=== PATIENT | female | born 2000 | race American Indian/Alaskan Native ===

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

== ENCOUNTER 2020-11-30 08:18 | Inpatient (IN) | payer MEDICAID ==
[2020-11-30] MEDS ORDERED: Ondansetron 4 MG/2 ML SDV IVPUSH PRN (08:24)
[2020-11-30] MEDS ORDERED: Methylergonovine 0.2 MG/1 ML Amp IM PRN (08:24)
[2020-11-30] MEDS ORDERED: Lidocaine 1% 30 ML SDV INJECT PRN (08:24)
[2020-11-30] MEDS ORDERED: Misoprostol 50 MCG (1/2 of 100 MCG) Tab VAG ONE ×2 (08:24→20:52)
[2020-11-30] MEDS ORDERED: Misoprostol 400 MCG (4 X 100 MCG TAB) RECTAL PRN (08:24)
[2020-11-30] MEDS ORDERED: Carboprost Tromethamine 250 MCG/1 ML Amp IM PRN (08:24)
[2020-11-30] MEDS ORDERED: Lactated Ringers 1,000 ML IV ONE (08:24)
[2020-11-30] MEDS ORDERED: Sodium Chloride 0.9% 10 ML Syringe FLUSH PRN (08:24)
[2020-11-30] MEDS ORDERED: Acetaminophen 325 MG Tab PO PRN ×2 (08:24)
[2020-11-30] MEDS ORDERED: Tranexamic Acid 1,000 MG in Sodium Chloride 0.9% 100 ML IV PRN (08:24)
[2020-11-30] MEDS ORDERED: Oxytocin/Normal Saline 30 UNIT/500 ML BAG IV SCH ×2 (08:30)
[2020-11-30] MEDS: Misoprostol 25 MCG (1/4 of 100 MCG) Tab VAG PRN ×2 (13:18→17:55)
[2020-11-30] MEDS: Penicillin G Potassium 5 MILLUNITS in Sodium Chloride 0.9% 100 ML IV ONE (13:43)
[2020-11-30] MEDS: Penicillin G Potassium 3 MILLUNITS in Sodium Chloride 0.9% 100 ML IV SCH (13:44)
--- NOTE | 2020-11-30 21:51 | OBOUT ---
DATE: 11/30/2020 TIME: 8:40 to 9 o'clock. REASON FOR NST: 1. Intrauterine at 37 weeks, confirmed with 12 and 3/7 weeks ultrasound. 2. Preeclampsia without severe features at current time of dictation. 3. Gestational diabetes mellitus, supposed to be on metformin. Initial blood sugar fasting controlled at 91. 4. History of syphilis, treated in May 2020 with 3 doses of penicillin at [facility]. Will need followup after delivery of her and baby. 5. Positive urine drug screen for THC on 06/06/2020 at [facility]. 6. GBS positive. 7. History of chlamydia, treated and negative on 08/07/2020. 8. G1, P0. NST INTERPRETATION: During this time period, heart tone baseline is approximately 130, and at least two 15 x 15 beats per minute accelerations, making this strip reactive as well as reassuring. Tocometer reveals potential of 1 contraction, not felt by the patient. Blood pressure 144/72, heart rate 81, blood sugar 91. ASSESSMENT: 1. Nonstress test reactive as well as reassuring. 2. Tocometer with 1 contraction, not felt by the patient. PLAN: Shortly after NST was performed, vaginal exam revealed to be finger tip, 60% effaced, ballotable presentation, vertex suspected, and 50 mcg of Cytotec was placed vaginally at that time. At current time of dictation, we will continue to follow clinically and closely. Of note, labs did return. The patient does have anemia of with hemoglobin of 9.1, her platelets are normal at 237. Other labs are pending. We will add her RPR titer to her labs today and notify lab to run them stat and will send them straight as soon as possible. Seen with medical student. Patient was personally seen and examined with the medical student practitioner student, Nicole Pacheco. I reviewed the noted scribed on my behalf and necessary changes have been made to reflect my opinion on the history, exam, assessment, and plan MODL /[id number] MTDD
[2020-11-30] MEDS: hydrOXYzine HCl 25 MG Tab PO ONE (22:03)
[2020-12-01] MEDS: Misoprostol 25 MCG (1/4 of 100 MCG) Tab VAG PRN ×2 (02:00→06:35)
[2020-12-01] MEDS: hydrOXYzine HCl 25 MG Tab PO ONE (07:30)
[2020-12-01] MEDS: Lactated Ringers 1,000 ML IV SCH ×3 (07:30→22:08)
[2020-12-01] MEDS ORDERED: hydrOXYzine HCl 25 MG Tab ONE (07:35)
[2020-12-01] MEDS ORDERED: Labetalol 20 MG/4 ML Syringe ONE ×2 (07:35→08:00)
[2020-12-01] MEDS ORDERED: Magnesium Sulfate/Water 4 GM/100 ML BAG IV ONE (07:38)
[2020-12-01] MEDS ORDERED: Labetalol 20 MG/4 ML Syringe IVPUSH ONE ×3 (07:39→09:28)
[2020-12-01] MEDS ORDERED: hydrOXYzine HCl 25 MG Tab PO ONE (07:41)
[2020-12-01] MEDS ORDERED: D5W IV SCH (07:45)
[2020-12-01] MEDS ORDERED: MAGNESIUM SULFATE IV SCH (07:45)
[2020-12-01] MEDS ORDERED: Magnesium Sulfate/Water 4 GM/100 ML BAG ONE (07:48)
[2020-12-01] MEDS ORDERED: Magnesium Sulfate/Water 20 GM/500 ML BAG ONE (07:48)
[2020-12-01] MEDS: Magnesium Sulfate/Water 20 GM/500 ML BAG IV SCH ×2 (08:10→19:45)
[2020-12-01] MEDS ORDERED: Penicillin G Potassium 5 MILLUNITS in Sodium Chloride 0.9% 100 ML IV ONE (09:00)
[2020-12-01] MEDS: Penicillin G Potassium 5 MILLUNITS in Sodium Chloride 0.9% 100 ML IV ONE (09:03)
[2020-12-01] MEDS ORDERED: Calcium Gluconate 10% 1 GM/10 ML SDV IV PRN (09:44)
[2020-12-01] MEDS ORDERED: Labetalol 20 MG/4 ML Syringe IVPUSH PRN (10:04)
[2020-12-01] MEDS ORDERED: Nalbuphine 10 MG/1 ML Vial IM PRN (10:14)
[2020-12-01] MEDS ORDERED: fentaNYL 100 MCG/2 ML SDV IVPUSH PRN (10:14)
--- NOTE | 2020-12-01 10:47 | PN ---
DATE: 12/01/2020 SUBJECTIVE: The patient complains of back pain and hip pain. She denies any contraction pain. Overnight, she received 50 mcg Cytotec placement, subsequently followed by 25 mcg Cytotec placement 4 hours after. In total during the induction, she has received 200 mcg of Cytotec placed. Her blood pressures have been increased overnight with systolic blood pressures in the 160s per nursing report. She denies any headaches, vision changes, fevers, chills, nausea, vomiting, chest pain, shortness of breath, upper abdominal pain, numbness, paresthesias. She last ate at 3:30 p.m. yesterday. She denies any history of anesthesia or bleeding problems. OBJECTIVE: Current Vital Signs: T 97.8 F, BP 194/96, P 94, RR 16. Heart: Regular rate and rhythm. No murmur noted. Lungs: Clear to auscultation bilaterally. FHT: Category 1, baseline 130s, moderate variability, accelerations present, decelerations absent. [place]: lacking contraction pattern. Cervical: Fingertip dilation of the external os, internal os closed. Station - 3, 30% effaced. LABORATORY DATA: WBC 10.7, RBC 4.0, HGB 9.5, HCT 30.5, platelet count 227. BUN 8, creatinine 0.63, uric acid 5.5, AST 11, ALT 13, LDH 151. ASSESSMENT: 1. Intrauterine at 37 weeks 1 day gestation, confirmed by ultrasound at 12 weeks 3/7 days' gestation. 2. Preeclampsia with severe features. 3. Gestational diabetes mellitus: Controlled on inconsistent metformin use and diet changes. 4. History of syphilis. Treated in 05/2020 with 3 doses penicillin. 5. Positive for urine drug screen for THC upon admission. 6. Group B Streptococcus positive. 7. G1, P0. 8. Anemia upon admission. Hemoglobin 9.1. 9. History of chlamydia infection, adequately treated. Re-testing negative on 08/07/2020. PLAN: Cytotec was placed at 0630. Currently, at the maximum dose of Cytotec placement (200 mcg). May consider adding Pitocin at 10:30 for augmentation/induction of labor. Due to elevated blood pressures and diagnosis of preeclampsia with severe features, started 4 g bolus of magnesium with subsequent dosing of 2 g/hr continuous magnesium sulfate. We will order magnesium labs every 6 hours. Gave 20 mg IV bolus labetalol, which did not help blood pressures, so an additional 40 mg IV push of labetalol was given. Systolic blood pressure goals below 160 at this time. If blood pressures are SBP greater 160 or DBP greater 110, we will give additional 40 mg IV push of labetalol. If blood pressures do not meet goal, may consider 80 mg labetalol IV push. We will continue to monitor for signs and symptoms of preeclampsia. We will continue to monitor induction of labor. May consider section if clinical status deteriorates. The patient verbalized understanding and is in agreement with plan. Syphillis testing sent to [facility], we expect syphillis results on Wednesday. HEIDI Crooks Seen with medical student. Patient was personally seen and examined with the medical student practitioner student, Nicole Pacheco. I reviewed the noted scribed on my behalf and necessary changes have been made to reflect my opinion on the history, exam, assessment, and plan [facility] /[id number] MTDD
[2020-12-01] MEDS: Penicillin G Potassium 3 MILLUNITS in Sodium Chloride 0.9% 100 ML IV SCH ×6 (11:17→23:27)
[2020-12-01] MEDS ORDERED: Oxytocin/Normal Saline 30 UNIT/500 ML BAG IV ONE (11:20)
[2020-12-01] MEDS ORDERED: Nalbuphine 10 MG/1 ML Vial ONE (11:55)
--- NOTE | 2020-12-01 14:35 | US ---
PROCEDURE INFORMATION: Exam: US , Limited Exam date and time: 12/01/2020 10:07 AM Age: 20 years old Clinical indication: Lmp or gestational age (in weeks): 37 wks, 1 day; Labor and delivery abnormalities; Other: Preeclampsia; ; Additional info: Questionable presentation TECHNIQUE: Imaging protocol: Real-time ultrasound of the maternal uterus with image documentation. Exam focused on the clinical indication. COMPARISON: No relevant prior studies available. FINDINGS: Gestation: Intrauterine gestation. presentation: Cephalic presentation. heart rate: heart rate recorded to be 128 bpm. Other findings: Limited examination. IMPRESSION: 1. Cephalic presentation. 2. heart rate recorded to be 128 bpm.
[2020-12-01] MEDS ORDERED: fentaNYL 100 MCG/2 ML SDV IV ONE (15:16)
--- NOTE | 2020-12-01 16:39 | PN ---
DATE: 12/01/2020 SUBJECTIVE: The patient is experiencing increased pelvic pressure and pain. She has received Nubain 20 mg IM and is on nitrox gas for pain management. She still reports increasing discomfort. Her blood pressures have remained within goal since the last evaluation. The Pitocin rate is up to 12. Per nursing report, contractions have lasted up to 4 minutes long, and there has been minimal variability for the past 1 hour. OBJECTIVE: Current Vital Signs: BP 125/63, P 74, T 99.2 F. Heart: Regular rate and rhythm. FHT: Category 2, baseline of 115-120s, minimal variability, minimal accelerations, and decelerations absent. [place]: Irregular contraction pattern lasting 2 to 5 minutes. Contractions are lasting for up to 4 to 5 minutes long. Cervical: Fingertip dilation of the external and internal os. Station -3, 75% effaced. ASSESSMENT: 1. Intrauterine at 37 weeks 1 day gestation, confirmed by ultrasound at 12 weeks 3/7 days gestation. 2. Preeclampsia with severe features. 3. Gestational diabetes mellitus, controlled on inconsistent metformin use and diet changes. 4. History of syphilis. Treated in 05/2020 with 3 doses of penicillin. 5. Positive for urine drug screen for THC upon admission. 6. Group B Streptococcus positive. 7. G1, P0. 8. Anemia upon admission. Hemoglobin 9.1. 9. History of chlamydia infection, adequately treated. Retesting negative on 08/07/2020. PLAN: Two doses of penicillin have been completed for prophylaxis due to GBS positive status. We will reduce her Pitocin rate from 12 to 6. We will continue to monitor blood pressures and want to remain goal systolic BP less than 160 and DBP less than 110. We will discuss plan with Dr. Bay. May consider artificial rupture of membrane or intrauterine catheter placement. HEIDI Crooks Seen with medical student. Patient was personally seen and examined with the medical student practitioner student, Nicole Pacheco. I reviewed the noted scribed on my behalf and necessary changes have been made to reflect my opinion on the history, exam, assessment, and plan MODL /[id number] [facility]
[2020-12-01] MEDS ORDERED: Naloxone 2 MG/2 ML Syringe IVPUSH PRN ×2 (17:25→18:38)
[2020-12-01] MEDS ORDERED: diphenhydrAMINE 50 MG/ML SDV IVPUSH PRN ×2 (17:25→18:38)
[2020-12-01] MEDS ORDERED: Acetaminophen/oxyCODONE 325-5 MG Tab PO PRN (17:25)
[2020-12-01] MEDS ORDERED: ePHEDrine 50 MG/ML SDV IVPUSH PRN (17:25)
[2020-12-01] MEDS ORDERED: Lactated Ringers 1,000 ML IV SCH (17:30)
[2020-12-01] MEDS ORDERED: Oxytocin/Normal Saline 60 UNIT/1,000 ML BAG ONE (17:41)
[2020-12-01] MEDS ORDERED: Succinylcholine 200 MG/10 ML MDV IV ONE (18:00)
[2020-12-01] MEDS ORDERED: Propofol 200 MG/20 ML SDV IV ONE (18:00)
[2020-12-01] MEDS ORDERED: Dexamethasone 4 MG/ML SDV IV ONE (18:00)
[2020-12-01] MEDS ORDERED: Ondansetron 4 MG/2 ML SDV IV ONE (18:00)
[2020-12-01] MEDS ORDERED: Ketorolac 30 MG/ML SDV IVPUSH ONE (18:00)
[2020-12-01] MEDS ORDERED: diphenhydrAMINE 25 MG Tab PO PRN (18:38)
[2020-12-01] MEDS ORDERED: Ondansetron 4 MG/2 ML SDV IVPUSH PRN (18:38)
[2020-12-01] MEDS ORDERED: fentaNYL Citrate/PF 1,500 MCG/30 ML PCA Vial IV SCH (18:45)
[2020-12-01] MEDS: Ketorolac 30 MG/ML SDV IVPUSH SCH (19:45)
--- NOTE | 2020-12-01 19:46 | PN ---
DATE: 11/30/2020 SUBJECTIVE: The patient presented for induction of labor at 37 weeks' gestation. She has not been feeling cramping. She does report increased pelvic pressure since starting the Cytotec. This morning, Cytotec 50 mcg was placed, and 4 hours after, a dose of 25 mcg Cytotec was placed. Cervix has made minimal change since admission. OBJECTIVE: Current Vital Signs: Afebrile, P 98, BP 168/77, and repeat BP check 156/85, RR 16. General: Alert. No concerning distress. FHT: Category 1, moderate variability, positive accels, negative decels. [place]: Irregular contractions occurring every 2 to 7 minutes. Pelvic: Cervix dilated to fingertip, effacement 50%, -3 station. Extremities: Nontender. No concerning edema. ASSESSMENT: 1. Intrauterine , 37 weeks' gestation based upon ultrasound at 12-3/7 weeks. 2. Preeclampsia without severe features. 3. Gestational diabetes mellitus, controlled on intermittent use of metformin and diet changes. 4. History of syphilis, treated on 05/2020. 5. Positive urine drug screen for THC upon admission. 6. Group B Streptococcus positive. 7. G1, P0. 8. Anemia of . Admission hemoglobin 9.1. 9. History of chlamydia infection, adequately treated, and subsequent testing negative on 08/07/2020. PLAN: Placed another Cytotec 25 mcg at 5:55 p.m. Will recheck in 4 hours for cervical dilation and change. We will continue placing 25 mcg Cytotec. Discussed with the patient risks involved such as uterine tachysystole. Pain is low and well controlled. Discussed that if SBP > 160 on a repeat exam, diagnosis of preeclampsia with severe features would be made and magnesium would be started. May start labetalol 20 mg IV push if SBP > 160 or DBP > 110. The patient verbalized understanding and is in agreement with plan. HEIDI Crooks Seen with medical student. Patient was personally seen and examined with the medical student practitioner student, Nicole Pacheco. I reviewed the noted scribed on my behalf and necessary changes have been made to reflect my opinion on the history, exam, assessment, and plan [facility] /[id number] [facility]
--- NOTE | 2020-12-01 19:59 | PN ---
DATE: 12/01/2020 SUBJECTIVE: The patient is now status post Cytotec up to 200 mcg total since admission with 50 mcg given x2 yesterday as well as 25 mcg x2 and then after midnight 25 mcg x2. She had some hip and back, pelvic pain currently. Denies any headaches, visual changes, or upper abdominal pain. OBJECTIVE: Vital Signs: Last blood pressure 142/63, recheck 156/73. She is now status post labetalol a total of 60 mg with one dose at 20 mg and another dose of 40 mg for severe hypertension. heart tones in the 130s and felt to be reactive and reassuring. Tocometer reveals contractions every 5 minutes on average. Vaginal exam reveals cervical nubbin felt with no presenting part and questionable presentation which was compared to yesterday. Vertex presentation was felt and suspected. LABORATORY DATA: White cell count 10.7, hemoglobin 9.5, platelets 227. HELLP labs were negative. Urine drug screen positive for THC yesterday. ASSESSMENT: 1. Preeclampsia with severe features in a 37-1/7-week complicated by gestational diabetes mellitus, suspect diet controlled with initial blood sugar in the 90s fasting. Mother also has a history of syphilis that was treated back in 05/2020. We will do an RPR on mother and on baby, which will be run and transferred to [place], where lab is done for a stat fashion. 2. Group B Streptococcus positive. Penicillin now has been started. 3. Anemia of with hemoglobin 9.1 on admission. 4. History of chlamydia, treated and negative on 08/07/2020. 5. G1, P0. PLAN: Mag sulfate has been started now for the preeclampsia with severe features. Labetalol as needed for severe hypertension. She has now had over 200 mcg of Cytotec, and discussed with the patient proceeding with Pitocin augmentation after ultrasound reveals vertex presentation. If ultrasound does not reveal vertex presentation, did discuss with her potential need for C- section. We will continue to follow clinically and closely at this point in time. The patient understands and agrees to above treatment plan. [facility] /[id number] MTDRay
--- NOTE | 2020-12-01 20:07 | PN ---
DATE: 12/01/2020 SUBJECTIVE: The patient is using Nitrox. OBJECTIVE: Pelvic: heart tone baseline around the 115s range and there were 2 accelerations within the last 10 minutes. Tocometer reveals contractions spaced out, 3 to 5 minutes apart with the last one. Pitocin has been at 6 milliunits per minute. We will increase now that we have reassuring status. ASSESSMENT: Intrauterine at 37 and 1/7 weeks, preeclampsia with severe features. Currently on magnesium sulfate. Received Nubain in the past and now is using Nitrox for pain relief. Status post artificial rupture of membranes and IUPC placement with Pitocin augmentation and history of receiving 200 mcg of Cytotec since yesterday for her induction. PLAN: We will continue to follow clinically and closely. Watch maternal status closely and we will attempt to reach 200 [place] units if mother and status allow. [facility] /[id number]
--- NOTE | 2020-12-01 20:26 | PN ---
DATE: 12/01/2020 SUBJECTIVE: The patient is breathing through contractions, using Nitrox, did receive some Nubain earlier. OBJECTIVE: heart tones. At current time of dictation in the 110s to 120s. There is 1 acceleration seen with vaginal exam. Tocometer when reading was difficult to read. There were potential contractions that last 4 or 5 minutes and other ones that lasted normal up to every 2 to 5 minutes apart. Vaginal exam reveals her to be 1.5 cm, anterior vertex suspected. Artificial rupture of membranes done after discussion with patient yielding copious amounts of clear fluid. An IUPC placed after this with discussion with the patient in regard to these procedures. ASSESSMENT AND PLAN: Now intrauterine at 37-1/7 weeks with preeclampsia with severe features, status post a total of 200 mcg of Cytotec starting yesterday with Pitocin started this morning, and now subsequent IUPC and artificial rupture membranes done as above. GBS was positive. The patient has received at least 2 doses of penicillin, and her PIH labs this morning were negative for HELLP syndrome. Her last blood pressure was 146/68, heart rate of 80. We will continue to follow clinically and closely. We will follow maternal status closely. Now that IUPC is placed, can be better monitor contractions, and for potential for decelerations or other concerns, and this was discussed with the patient. She understands and agrees. [facility] /[id number]
--- NOTE | 2020-12-01 20:50 | PN ---
DATE: 12/01/2020 SUBJECTIVE: The patient is breathing with her Nitrox, feeling her contractions. I was called to evaluate the patient as there was unsure presentation with vaginal exam and concerns with heart tones. OBJECTIVE: Genitourinary: Vaginal exam does reveal there to be 1.[address], 75% effaced, 0 to -1 station vertex suspected with caput noted. heart tones in the 115s to 120s range. Minimal variability with actual deceleration noted with vaginal exam, and prior to this vaginal exam, there were noted to be recurrent late decelerations with minimal variability, seen by my eyes and noted by a nurse as well. At that time, position changes ensued as well as IV fluid bolus and Nitrox/oxygen given. Pitocin was also stopped. Despite these interventions, no resolution of concerns with heart tones. Tocometer currently reveals contractions every 3 to 5 minutes apart. ASSESSMENT: 1. Nonreassuring status. 2. intolerance to labor. 3. Nearing timeline for failed induction. 4. Intrauterine at 37 and 1/7 weeks, confirmed with 12 and 3/7 weeks ultrasound. 5. Preeclampsia with severe features. Currently, on magnesium sulfate as well as using labetalol p.r.n. for elevated blood pressures. 6. Gestational diabetes mellitus, suspect diet controlled. She was on metformin inconsistently Blood glucose upon admission was 91. We will be obtaining one prior to going to the operating room. 7. History of syphilis during this , treated in May 2020 with protocol to be followed afterwards. RPR has already been drawn on the patient, will be drawn on baby after delivery and done stat, will be sent out to the state, and infant will need to be treated with penicillin. 8. Positive urine drug screen for THC on 06/06/2020, at [facility] on date of admission. 9. GBS positive, status post multiple doses of penicillin given. 10.History of chlamydia, treated and negative on 08/07/2020. 11.Intrauterine with hemoglobin 9.1 on date of admission. 12.G1, P0. PLAN: I did discuss with patient and her male partner findings as well as concerns with status. I did discuss with her and her male partner risks, benefits, alternatives, complications of including but not limited to infection; bleeding; damage to organs such as bowel, bladder, tubes, uterus, ovaries, and sometimes fetus; rarely needing a blood transfusion or further surgery, and rare maternal or . She understands, agrees, and wishes to proceed. Verbal and written consent obtained. Questions were answered. We will proceed to the OR as soon as crew is ready and available. I did discuss this case with Dr. Jolley, [employer] ATTENDANT who is also on-call for the weekend and will be present for assisting with delivery. [facility] /[id number] KIERRA
--- NOTE | 2020-12-01 23:19 | OR ---
DATE: 12/01/2020 PREOPERATIVE DIAGNOSES: 1. Intrauterine at 37-1/7th weeks, confirmed with 12-3/7th week ultrasound. 2. Nonreassuring status. 3. intolerance of labor. 4. Nearing timeline for failed induction. 5. Preeclampsia with severe features. Started on magnesium sulfate during this hospitalization. 6. Gestational diabetes mellitus, suspect diet controlled, with blood glucose 91 upon admission and 71 prior to surgery. 7. History of syphilis treated in 05/2020 with 3 doses of penicillin given and RPR done upon admission and will be done on baby and run stat and follow protocol for treatment of the baby. 8. Positive urine drug screen for THC 06/06/2020 at [facility] upon admission. 9. GBS positive-treated with multiple doses of penicillin. 10.History of chlamydia-treated, negative on 08/07/2020. 11.Anemia of with hemoglobin 9.1. 12.G1, P0. POSTOPERATIVE DIAGNOSES: 1. Intrauterine at 37-1/7th weeks, confirmed with 12-3/7th week ultrasound, delivered. 2. Nonreassuring status. 3. intolerance of labor. 4. Nearing timeline for failed induction. 5. Preeclampsia with severe features. Started on magnesium sulfate during this hospitalization. 6. Gestational diabetes mellitus, suspect diet controlled, with blood glucose 91 upon admission and 71 prior to surgery. 7. History of syphilis treated in 05/2020 with 3 doses of penicillin given and RPR done upon admission and will be done on baby and run stat and follow protocol for treatment of the baby. 8. Positive urine drug screen for THC 06/06/2020 at [facility] upon admission. 9. GBS positive-treated with multiple doses of penicillin. 10.History of chlamydia-treated, negative on 08/07/2020. 11.Anemia of with hemoglobin 9.1. 12.G1, P0. 13.Nuchal cord x1, reduced bluntly at delivery. 14.Suspected left ear laceration with entry into the uterus, suspect superficial. PROCEDURES PERFORMED: On 11/30/2020, NST and Cytotec; followed by on 12/01/2020 Pitocin, IUPC and artificial rupture of membranes; followed by primary low transverse section with 2-layer uterine closure as below. BRYOLOGIST: Raul Jolley MD; and Nicole Pacheco MS3. ANESTHESIA: General. ESTIMATED BLOOD LOSS: 550 mL. URINE OUTPUT: 700 mL and clear yellow. IV FLUIDS: 1500 mL. TIME: Start time: 1752 hours. Uterine incision: 1753 hours. Delivery: 1753 hours. Stop: 1810 hours. FINDINGS: Female. scores 7 and 9. Weight pending. Suspected left ear laceration with entry into the uterus and suspect superficial. DESCRIPTION OF PROCEDURE: After proper consent was obtained, the patient was brought to the operating room where she was initially evaluated and heart tones in the operating room were in the 120s with no variability, and due to the nonreassuring status history, she was put under general anesthesia. Abdomen was prepped and draped in normal sterile fashion with patient placed in supine position with left lateral tilt. Once Anesthesia gave the okay, Pfannenstiel-type incision was made on lower abdomen. This was carried down to fascia and scored in midline. Subcutaneous tissue raked laterally bluntly and fascial incision extended superiorly and inferiorly and laterally with blunt technique, rectus and pyramidalis muscles using blunt technique. Abdominal muscles were with blunt technique. Abdominal cavity was then entered in blunt technique. Incision was extended superiorly and inferiorly with blunt technique. Bello O retractor was then introduced and used. Vesicouterine peritoneum was identified, incised in transverse fashion with Metzenbaum scissors and bladder flap was made digitally. A curvilinear incision was then made on lower uterine segment with very thin lower uterine segment noted and suspected left ear at the incision line with small laceration suspect superficial to ear. Uterus was entered sharply. Clear fluid returned. Uterine incision was then extended in transverse fashion using blunt technique. vertex was then delivered through the abdomen, followed by rest of the infant with nuchal cord x1 reduced bluntly with delivery with minimal difficulty delivering the . Mouth and nares were suctioned. Cord was doubly clamped and cut. was brought over to team. Approximately 10 mL of cord blood was obtained for labs. Placenta was then delivered with gentle traction with fundal massage. Uterine cavity was then cleared of all blood clots and debris with lap sponge. Rodriguez clamps were used to grasp the uterine incision. This was closed in running locked fashion and tied at lateral margins with 1-0 Vicryl. Second imbricating layer was then applied and tied at lateral margins with 1-0 Vicryl. Midline, there was minimal bleeding. [id number] stitches were applied over this area and first inspection of the uterine incision revealed hemostasis. Bello O retractor was then removed and paracolic gutters were then cleared of all blood clots and debris with lap sponge. Anterior cul-de-sac was irrigated copiously, all blood clots were removed. Second and final inspection of uterine incision and anterior cul-de-sac revealed hemostasis. Rectus muscles were then reapproximated in midline with [id number] stitch using 1-0 Vicryl. Subfascial tissues were found to be hemostatic and fascia closed in running fashion and tied at lateral margins with 0 looped PDS. Subcutaneous tissue irrigated copiously. Hemostasis reassured. Skin was reapproximated with luzmaria. Sterile Aquacel dressing applied. Uterine fundus was firm and massaged at the conclusion of the case, -2 below umbilicus. No immediate complications were noted. Sponge, lap and needle counts were correct. The patient received 2 grams of Ancef preoperatively, received Pitocin per protocol and received Toradol at conclusion of case for pain control. Magnesium sulfate will be resumed as well. Mother and are currently stable at time of dictation. [facility] /[id number]
[2020-12-01] MEDS: Simethicone 80 MG Tab.Chew PO SCH (23:27)
[2020-12-02] MEDS: Magnesium Sulfate/Water 20 GM/500 ML BAG IV SCH ×2 (05:45→15:51)
[2020-12-02] MEDS: Ketorolac 30 MG/ML SDV IVPUSH SCH ×2 (06:00)
[2020-12-02] MEDS: Docusate Sodium 100 MG Cap PO PRN ×2 (08:54→20:07)
[2020-12-02] MEDS: Prenatal Multivitamin with Calcium/Folic Acid/Iron Tab PO SCH (08:54)
[2020-12-02] MEDS: Acetaminophen/oxyCODONE 325-5 MG Tab PO PRN ×3 (08:54→20:08)
[2020-12-02] MEDS: Simethicone 80 MG Tab.Chew PO SCH ×4 (08:54→20:06)
--- NOTE | 2020-12-02 11:28 | PN ---
DATE: 12/02/2020 SUBJECTIVE: The patient is doing well this morning. She reports sleeping well overnight. She has not used the fentanyl PRODUCTION UTILITY WORKER pump since time of surgery. She reports her pain is 0/10. She reports her discomfort is located in her "butt," which she believes is due to lying down. She requests Lemon catheter removal today because she wants to get up and move around. She continues to remain on the magnesium drip at a rate of 2 g/hour for prophylaxis of seizures due to her preeclampsia with severe features. She denies any vision changes, headache, fevers, chills, nausea, vomiting, chest pain, shortness of breath, numbness, tingling, or weakness. She has an appetite and would like to eat food today as well. OBJECTIVE: Vital Signs: T 98.2 F, P 109, BP 146/65, and RR 15. General: Alert, no acute distress. Heart: Tachycardia, normal rhythm. No murmur heard. Lungs: Clear to auscultation bilaterally. Neurologic: Equal clinical support manager strength bilaterally, no ankle clonus. Abdomen: Appropriately tender, fundus firm 2 fingerbreadths below umbilicus. Dressings intact without serosanguineous saturation. Extremities: No concerning edema bilaterally. LABORATORY DATA: WBC 15.7, RBC 3.47, HGB 8.1, HCT 26.5, and platelet count 255. Magnesium at 3 a.m., 5.7. ASSESSMENT: 1. Intrauterine at 37-1/7 weeks, confirmed with 12-3/7 weeks ultrasound. 2. Preeclampsia with severe features. Currently on magnesium sulfate and we will continue until 24 hours . 3. Gestational diabetes mellitus, suspect diet-controlled and inconsistent use of metformin. 4. History of syphilis during , treated in 05/2020 with 3 doses of penicillin. In 05/2020, titer was 1:16. Titer in 09/2020 was 1:8. 5. Positive urine drug screen for THC upon admission. 6. Group B Streptococcus positive, status post multiple doses of penicillin given. 7. History of chlamydia, treated and negative on 08/07/2020. 8. Maternal anemia of with hemoglobin of 9.1 on date of admission, hemoglobin 8.1 today. 9. G1, now P1-0-0-1. PLAN: We will continue serial evaluations to monitor for signs of preeclampsia with severe features. Continue to monitor blood pressures with goals of SBP less than 160 and DBP less than 110. She will remain on magnesium 2 g/hour until 24 hours , which will be approximately at 6 p.m. this evening. \\ After magnesium is discontinued, may remove Lemon catheter. Discontinued the PRODUCTION UTILITY WORKER fentanyl pump and we will start on oral pain medications including Motrin and Percocet every 4 hours as needed for pain. May begin a general diet. The patient verbalizes understanding and is in agreement with plan. HEIDI Crooks Seen with medical student. Patient was personally seen and examined with the medical student practitioner student, Nicole Pacheco. I reviewed the noted scribed on my behalf and necessary changes have been made to reflect my opinion on the history, exam, assessment, and plan [facility] /[id number] MTDD
[2020-12-02] MEDS ORDERED: Ketorolac 30 MG/ML SDV IVPUSH ONE (12:10)
[2020-12-02] MEDS ORDERED: fentaNYL Citrate/PF 1,500 MCG/30 ML PCA Vial IV SCH (12:45)
[2020-12-02] MEDS: Ibuprofen 800 MG Tab PO PRN (20:07)
[2020-12-03] MEDS: Acetaminophen/oxyCODONE 325-5 MG Tab PO PRN ×6 (00:31→21:22)
[2020-12-03] MEDS: Ibuprofen 800 MG Tab PO PRN ×3 (04:29→21:23)
[2020-12-03] MEDS: Prenatal Multivitamin with Calcium/Folic Acid/Iron Tab PO SCH (10:01)
[2020-12-03] MEDS: Docusate Sodium 100 MG Cap PO PRN ×2 (10:01→21:21)
[2020-12-03] MEDS: Simethicone 80 MG Tab.Chew PO SCH ×3 (10:01→18:35)
--- NOTE | 2020-12-03 11:36 | PN ---
DATE: 12/03/2020 SUBJECTIVE: The patient is doing well this morning. She reports sleeping well overnight. She has been ambulating to the restroom and has been voiding appropriately. When she was voiding, she reported that she felt like her incision site was opening. After viewing the incision site with the patient, reassured that incision site was intact. She denies any vision changes, headache, fevers, chills, nausea, vomiting, chest pain, shortness of breath, numbness, tingling, or weakness. She has been tolerating p.o. OBJECTIVE: Vital Signs: T 98.9 F, P 80, BP 105/54, and RR 16. General: Alert, no acute distress. Heart: Normal rate and rhythm. No murmur heard. Lungs: Clear to auscultation bilaterally. Neurologic: Equal nuclear medicine pet ct technologist strength bilaterally, no ankle clonus. Abdomen: Appropriately tender. Fundus firm, 2 fingerbreadths below umbilicus. Dressings intact without serosanguineous saturation. Extremities: No concerning edema bilaterally. ASSESSMENT: 1. Postoperative day 2 following section of intrauterine at 37-1/7 weeks, confirmed with 12-3/7 weeks ultrasound. 2. Preeclampsia with severe features. Completed 24-hour course of magnesium . 3. Gestational diabetes mellitus, suspect diet controlled and inconsistent use of metformin. 4. History of syphilis during , treated in 05/2020 with 3 doses of penicillin. In 05/2020, titer was 1:16. Titer in 09/2020 was 1:8. 5. Positive urine drug screen for THC upon admission. 6. Group B Streptococcus status positive, status post multiple doses of penicillin. 7. History of chlamydia infection, treated and negative on 08/07/2020. 8. Maternal anemia of with hemoglobin of 9.1 on date of admission, hemoglobin 8.1 yesterday. 9. G1, now P1-0-0-1. PLAN: We will continue serial evaluations to monitor for signs of preeclampsia with severe features. Continue to monitor blood pressures with goals of SBP less than 160 and DBP less than 110. If blood pressure is increased, may consider use of 20 mg IV push labetalol. Encourage ambulation as tolerated. Encourage general diet. Continue using Motrin for pain control. We will continue to follow for results of syphilis testing. The patient verbalizes understanding and is in agreement with plan. Seen with medical student. Patient was personally seen and examined with the medical student practitioner student, Nicole Pacheco. I reviewed the noted scribed on my behalf and necessary changes have been made to reflect my opinion on the history, exam, assessment, and plan [facility] /[id number] MTDD
[2020-12-04] MEDS: Simethicone 80 MG Tab.Chew PO SCH ×5 (08:48→20:33)
[2020-12-04] MEDS: Ibuprofen 800 MG Tab PO PRN ×2 (08:48→18:05)
[2020-12-04] MEDS: Ferrous Sulfate 325 MG Tab PO SCH (08:48)
[2020-12-04] MEDS: Prenatal Multivitamin with Calcium/Folic Acid/Iron Tab PO SCH (08:48)
[2020-12-04] MEDS: Acetaminophen/oxyCODONE 325-5 MG Tab PO PRN ×3 (08:49→20:29)
--- NOTE | 2020-12-04 12:36 | PN ---
DATE: 12/04/2020 SUBJECTIVE: The patient is doing well this morning. She reports sleeping well overnight. She has ambulated to the restroom and has been voiding appropriately. She describes mild discomfort at the incision area and her pain is being managed with Motrin and Percocet. She denies any headaches, fevers, chills, nausea, vomiting, chest pain, shortness of breath. She is tolerating p.o. She verbalizes that she wants to stay another day if her baby is staying. We are still awaiting results for syphilis titers. OBJECTIVE: Vital signs: T 99.0 F, P 90, BP 121/55, RR 18. General: Alert, no acute distress Heart: RRR, no murmur heard Lungs: CTA bilateraly Abdomen: Appropriately tender, dressings intact without saturation, fundus firm 2 fingerbreaths below umbilicus Extremities: Non concerning edema, compression stockings in place Neuro: No focal deficit ASSESSMENT: 1. Postoperative day #3 following section of intrauterine at 37-1/7 weeks gestation, confirmed with 12-3/7 weeks ultrasound. 2. Preeclampsia with severe features. Completed 24-hour course of magnesium . Blood pressure is within goal. 3. Gestational diabetes mellitus, suspect diet-controlled and inconsistent use of metformin. 4. History of syphilis during , treated in 05/2020 with 3 doses of penicillin. In 05/2020, titer was 1:16 and titer in 09/2020 was 1:8. 5. Positive urine drug screen for THC upon admission. 6. GBS status positive, status post multiple doses of penicillin. 7. History of chlamydia infection, treated in negative on 08/07/2020. 8. Maternal anemia with hemoglobin of 9.1 on date of admission, hemoglobin 8.1 yesterday. 9. G1, now P1-0-0-1. PLAN: We will continue serial evaluations to monitor for signs of preeclampsia with severe features. Continue to monitor blood pressures with goals of SBP less than 160 and DBP less than 110. Encourage increasing activity as tolerated. Encourage general diet. May consider using Motrin and Percocet for pain control. We will continue to follow for results of syphilis testing. We are anticipating results by this afternoon. The patient verbalizes understanding and is in agreement with plans. AGBBY CrooksII Seen with medical student. Patient was personally seen and examined with the medical student practitioner student, Nicole Pacheco. I reviewed the noted scribed on my behalf and necessary changes have been made to reflect my opinion on the history, exam, assessment, and plan-DCW. RPR resulted and titre stable and infants titre less then mothers. will follow closely at this time. [facility] /[id number] KIERRA
[2020-12-04] MEDS: Docusate Sodium 100 MG Cap PO PRN (20:33)
[2020-12-05] MEDS: Acetaminophen/oxyCODONE 325-5 MG Tab PO PRN ×2 (02:17→08:15)
[2020-12-05] MEDS: Ibuprofen 800 MG Tab PO PRN ×2 (02:18→10:33)
[2020-12-05] MEDS: Docusate Sodium 100 MG Cap PO PRN (08:14)
[2020-12-05] MEDS: Ferrous Sulfate 325 MG Tab PO SCH (08:14)
[2020-12-05] MEDS: Simethicone 80 MG Tab.Chew PO SCH ×2 (08:14→14:18)
[2020-12-05] MEDS: Prenatal Multivitamin with Calcium/Folic Acid/Iron Tab PO SCH (08:14)
--- NOTE | 2020-12-05 22:20 | DISCH ---
ADMITTING DIAGNOSES: 1. Intrauterine , 37 weeks' gestation based upon ultrasound at 12-3/7 weeks. Presents for induction of labor. 2. Preeclampsia without severe features. 3. Gestational diabetes mellitus, controlled on inconsistent use of metformin and dietary changes. 4. History of syphilis, treated in 05/2020. 5. Positive urine drug screen for THC upon admission. 6. Group B Streptococcus positive. 7. 1, para 0. 8. Anemia of . Admission hemoglobin 9.1. 9. History of chlamydia infection, adequately treated, and subsequent testing negative on 08/07/2020. DISCHARGE DIAGNOSES: 1. Postoperative day #4 following section of intrauterine at 37-1/7 weeks gestation, confirmed with 12-3/7 weeks' ultrasound. 2. Preeclampsia with severe features. Completed 24-hour course of magnesium . Blood pressure is within goal. 3. Gestational diabetes mellitus, suspect diet-controlled and inconsistent use of metformin. 4. History of syphilis during , treated in 05/2020 with 3 doses of penicillin. In 05/2020, titer was 1:16, and titer in 09/2020 was 1:8. 5. Positive urine drug screen for THC upon admission. 6. Group B Streptococcus status positive, status post multiple doses of penicillin. 7. History of chlamydia infection, treated, and negative on 08/07/2020. 8. Maternal anemia of with hemoglobin of 9.1 on date of admission, following hemoglobin postoperatively it was 8.1. 9. 1, now para 1-0-0-1. PROCEDURES PERFORMED: 1. Induction of labor with Cytotec, maximum dose of 200 mcg attained. 2. Artificial rupture of membranes. 3. General anesthesia. 4. Primary low-transverse section. BRIEF HISTORY: A 20-year-old female with the above-listed diagnoses, presented to the hospital for induction of labor at 37 and 0/7 days' gestation. She presented with preeclampsia without severe features. After maximum dose of Cytotec was attained, Pitocin was started and artificial rupture of membranes was performed. Due to intolerance of labor and non reassuring status and preeclampsia with severe features developing, the decision was made to proceed with a primary low- transverse section. Due to intolerance of labor and maternal blood pressure dropping acutely with SBP in the 80s, a stat section was performed. The delivery occurred without further complication. EBL was minimal and a healthy female was born. HOSPITAL COURSE: Has been good. She completed 24 hours of magnesium sulfate infusion due to preeclampsia with severe features. Since then, her pain has been well controlled and she has been ambulating and tolerating regular diet. No chest pain or shortness of breath. No signs or symptoms of infection, preeclampsia, or other complications. She is requesting discharge home today. DISCHARGE CONDITION: Good. PHYSICAL EXAMINATION: Vital Signs: T 98.4 F, P 88, BP 130/82, and RR 16. Heart: Regular rate and rhythm, no murmur heard. Lungs: Clear to auscultation bilaterally with good chest expansion. Abdomen: Soft and nontender. Fundus is firm 2 fingerbreadths below umbilicus. Dressings intact without saturation. Extremities: Non concerning edema or tenderness noted. LABORATORY DATA: RPR reactive. RPR titer 1:8. Admission hemoglobin 9.1, hemoglobin on 12/02/2020 was 8.1. DISPOSITION: Home with family. DISCHARGE MEDICATIONS: [id number] ibuprofen as needed for pain. Continue vitamin 1 daily. Continue iron 325 mg once daily. We will prescribe 20 tablets of Percocet upon discharge. FOLLOWUP: Will be seen in clinic for staple removal. Will also be seen in 6 weeks for routine examination. She will be screened for depression when she brings back baby for rechecks and well-child examination. May be seen in clinic sooner if needed. INSTRUCTIONS: Routine post delivery instructions were provided, and all of her questions were answered. Seen with medical student. Patient was personally seen and examined with the medical student practitioner student, Loyda Pacheco. I reviewed the noted scribed on my behalf and necessary changes have been made to reflect my opinion on the history, exam, assessment, and plan [facility] /[id number]
== END 2020-12-05 15:17 | disposition home or self-care (01) | DRG 787 ==
LOC: DL.OB 08:18 → OBSVTOIN 12-01 17:53 → DL.OB 12-02 23:08 → DL.MS 12-04 11:10
PROVIDERS: ADMIT Family Medicine; ATTEND Family Medicine
PROC: 10D00Z1 Extraction of Products of Conception, Low, Open Approach (ICD-10-PCS; principal; 2020-12-01)
PROC: 10H07YZ Insertion of Other Device into Products of Conception, Via Natural or Artificial Opening (ICD-10-PCS; 2020-12-01)
PROC: 3E0P7VZ Introduction of Hormone into Female Reproductive, Via Natural or Artificial Opening (ICD-10-PCS; 2020-12-01)
PROC: 10907ZC Drainage of Amniotic Fluid, Therapeutic from Products of Conception, Via Natural or Artificial Opening (ICD-10-PCS; 2020-12-01)
DX: O14.13 Severe pre-eclampsia, third trimester (principal); O99.324 Drug use complicating childbirth; O99.02 Anemia complicating childbirth; D64.9 Anemia, unspecified; O99.824 Streptococcus B carrier state complicating childbirth; F12.90 Cannabis use, unspecified, uncomplicated; O24.410 Gestational diabetes mellitus in pregnancy, diet controlled; Z20.822 Contact with and (suspected) exposure to COVID-19; O24.415 Gestational diabetes mellitus in pregnancy, controlled by oral hypoglycemic drugs; O69.81X0 Labor and delivery complicated by cord around neck, without compression, not applicable or unspecified; Z28.82 Immunization not carried out because of caregiver refusal; Z3A.37 37 weeks gestation of pregnancy; Z37.0 Single live birth
CPT/HCPCS: 01961; 36415; 51702; 59025; 59409; 76815; 80305-QW; 82565; 82947; 83615; 83735; 84450; 84460; 84520; 84550; 85027; 86592; 86850; 86900; 86901; A9270-GY; J0330; J0690; J1100; J1885; J2300; J2405; J2540; J2590; J2704; J3010; J3475; J3490; J7120; U0002

== ENCOUNTER 2023-08-21 16:46 | Emergency (ER) | payer SELFPAY ==
[2023-08-21] MEDS ORDERED: Acetaminophen 500 MG Tab PO ONE (17:45)
[2023-08-21] MEDS ORDERED: Amoxicillin 500 MG Cap PO ONE (17:46)
[2023-08-21] MEDS ORDERED: Take Home: Amoxicillin 500 MG, 6 Cap Pack PO ONE (17:48)
== END 2023-08-21 18:32 | disposition home or self-care (01) ==
LOC: DL.ED 16:46
DX: J02.0 Streptococcal pharyngitis (principal); R50.81 Fever presenting with conditions classified elsewhere; F17.210 Nicotine dependence, cigarettes, uncomplicated
CPT/HCPCS: 87430; 99283; A9270

== ENCOUNTER 2024-10-21 13:40 | Inpatient (IN) | payer MEDICAID ==
[2024-10-21 14:24] LABS: APPEARANCE,URINE CLEAR (CLEAR); BILIRUBIN,URINE NEGATIVE (NEGATIVE); GLUCOSE,URINE NEGATIVE (NEGATIVE); KETONES,URINE NEGATIVE (NEGATIVE); LEUKOCYTE ESTERASE,URINE NEGATIVE (NEGATIVE); NITRITE,URINE NEGATIVE (NEGATIVE); OCCULT BLOOD,URINE NEGATIVE (NEGATIVE); PROTEIN,URINE NEGATIVE (NEGATIVE); UROBILINOGEN,URINE 0.2 mg/dL (0.2-1.0)
[2024-10-21 14:25] LABS: COLOR,URINE LIGHT YELLOW (YELLOW)
[2024-10-21 14:58] LABS: BACTERIA,URINE FEW /HPF (0-FEW/HPF); EPITHELIAL CELLS,URINE MODERATE /HPF (NOT SEEN); RBC,URINE NOT SEEN /HPF (0-5); WBC,URINE 0-5 /HPF (0-5/HPF)
[2024-10-21 15:01] LABS: CREATININE,URINE RAND 33.36 mg/dL (No establ ref range)
[2024-10-21 15:06] LABS: PROTEIN,URINE RANDOM < 6.0 mg/dL (0.0-11.9)
[2024-10-21] MEDS ORDERED: Methylergonovine 0.2 MG/1 ML Amp IM PRN (15:39)
[2024-10-21] MEDS ORDERED: diphenhydrAMINE 50 MG/ML SDV IVPUSH PRN (15:39)
[2024-10-21] MEDS ORDERED: Acetaminophen 325 MG Tab PO PRN (15:39)
[2024-10-21] MEDS ORDERED: Tranexamic Acid 1,000 MG in Sodium Chloride 0.9% 100 ML IV PRN (15:39)
[2024-10-21] MEDS ORDERED: Naloxone 2 MG/2 ML Syringe IVPUSH PRN (15:39)
[2024-10-21] MEDS ORDERED: ePHEDrine 50 MG/ML SDV IVPUSH PRN (15:39)
[2024-10-21] MEDS ORDERED: Oxytocin/Normal Saline 30 UNIT/500 ML BAG IV SCH (15:45)
[2024-10-21] MEDS: Ondansetron 4 MG/2 ML SDV IVPUSH PRN (16:10)
[2024-10-21 16:15] LABS: METHAMPHETAMINES,URINE NEGATIVE (NEGATIVE)
[2024-10-21 16:16] LABS: AMPHETAMINES,URINE NEGATIVE (NEGATIVE); BARBITURATES,URINE NEGATIVE (NEGATIVE); BENZODIAZEPINE,URINE NEGATIVE (NEGATIVE); MDMA (ECSTASY), URINE NEGATIVE (NEGATIVE); METHADONE,URINE NEGATIVE (NEGATIVE); OPIATES,URINE NEGATIVE (NEGATIVE); OXYCODONE,URINE NEGATIVE (NEGATIVE); PHENCYCLIDINE,URINE NEGATIVE (NEGATIVE); TCA,URINE NEGATIVE (NEGATIVE)
[2024-10-21] MEDS ORDERED: Oxytocin/Normal Saline 30 UNIT/500 ML BAG ONE (16:20)
[2024-10-21] MEDS ORDERED: Famotidine 20 MG/2 ML SDV ONE (16:20)
[2024-10-21 16:27] LABS: HEMATOCRIT 29.6 % (37.0-47.0); HEMOGLOBIN 8.6 g/dL (12.0-16.0); MEAN CORPUSCULAR HEMOGLOBIN 20.4 pg (27.0-34.0); MEAN CORPUSCULAR HGB CONC 29.1 g/dL (33.0-35.0); MEAN CORPUSCULAR VOLUME 70.3 fL (80-100); RED BLOOD CELL COUNT 4.21 10^6/uL (4.2-5.4); WHITE BLOOD CELL COUNT,WBC 6.8 10^3/uL (5.0-10.0)
[2024-10-21] MEDS: Lactated Ringers 1,000 ML IV SCH (16:40)
[2024-10-21] MEDS ORDERED: Metoclopramide 10 MG/2 ML SDV ONE ×2 (17:26→18:25)
[2024-10-21] MEDS: Promethazine 25 MG/ML SDV IM ONE (17:55)
[2024-10-21] MEDS: Oxytocin/Lactated Ringers 30 UNIT/500 ML BAG IV SCH (18:10)
[2024-10-21] MEDS ORDERED: Ondansetron 4 MG/2 ML SDV ONE (18:26)
[2024-10-21] MEDS ORDERED: Phenylephrine 1% 10 MG/ML SDV ONE (18:26)
[2024-10-21] MEDS ORDERED: Dexamethasone 4 MG/ML SDV ONE (18:26)
[2024-10-21] MEDS ORDERED: Ketorolac 30 MG/ML SDV ONE (18:27)
[2024-10-21] MEDS ORDERED: dexmedeTOMIDine HCl 200 MCG/2 ML SDV ONE (18:27)
[2024-10-21] MEDS: Promethazine 25 MG/ML SDV ONE (19:57)
[2024-10-21] MEDS: Simethicone 80 MG Tab.Chew PO SCH (19:57)
[2024-10-21] MEDS: ceFAZolin 2 GM Vial IVPUSH ONE (19:57)
[2024-10-21] MEDS: Carboprost Tromethamine 250 MCG/1 ML Amp IM PRN (20:50)
[2024-10-21] MEDS: Misoprostol 100 MCG Tab RECTAL PRN (20:50)
[2024-10-21] MEDS: Acetaminophen/oxyCODONE 325-5 MG Tab PO PRN (21:25)
[2024-10-22 02:41] LABS: HEMATOCRIT 26.9 % (37.0-47.0); HEMOGLOBIN 8.1 g/dL (12.0-16.0); MEAN CORPUSCULAR HEMOGLOBIN 21.3 pg (27.0-34.0); MEAN CORPUSCULAR HGB CONC 30.1 g/dL (33.0-35.0); MEAN CORPUSCULAR VOLUME 70.6 fL (80-100); RED BLOOD CELL COUNT 3.81 10^6/uL (4.2-5.4); WHITE BLOOD CELL COUNT,WBC 15.4 10^3/uL (5.0-10.0)
[2024-10-22] MEDS: Ketorolac 30 MG/ML SDV IVPUSH SCH ×3 (03:52→16:04)
[2024-10-22] MEDS ORDERED: Atropine/Diphenoxylate 0.025-2.5 MG Tab PO PRN (10:30)
[2024-10-22] MEDS: Prenatal Multivitamin with Calcium/Folic Acid/Iron Tab PO SCH (10:37)
[2024-10-22 12:16] LABS: BASOPHILS PERCENT AUTO 0.1 % (0.0-1.0); EOSINOPHILS PERCENT AUTO 0.2 % (1.0-3.0); HEMATOCRIT 25.8 % (37.0-47.0); HEMOGLOBIN 7.7 g/dL (12.0-16.0); LYMPHOCYTES PERCENT AUTO 19.1 % (20.5-50.1); MEAN CORPUSCULAR HEMOGLOBIN 21.2 pg (27.0-34.0); MEAN CORPUSCULAR HGB CONC 29.8 g/dL (33.0-35.0); MEAN CORPUSCULAR VOLUME 71.1 fL (80-100); MONOCYTES PERCENT AUTO 8.6 % (2-8); PLATELET COUNT,PLT 171 10^3/uL (150-450); RED BLOOD CELL COUNT 3.63 10^6/uL (4.2-5.4)
[2024-10-22] MEDS ORDERED: Rocuronium 100 MG/10 ML MDV ONE (12:33)
[2024-10-22] MEDS: Acetaminophen/oxyCODONE 325-5 MG Tab PO PRN (15:58)
[2024-10-22] MEDS: Docusate Sodium 100 MG Cap PO PRN (20:26)
[2024-10-23] MEDS: Ibuprofen 800 MG Tab PO PRN (00:54)
== END 2024-10-23 10:45 | disposition home or self-care (01) | DRG 787 ==
LOC: DL.BLOODTR 13:40 → DL.OB 15:36 → OBSVTOIN 17:07 → DL.OB 17:07
PROVIDERS: ADMIT Family Medicine; ATTEND Family Medicine
PROC: 10D00Z1 Extraction of Products of Conception, Low, Open Approach (ICD-10-PCS; principal; 2024-10-21)
PROC: 30233N1 Transfusion of Nonautologous Red Blood Cells into Peripheral Vein, Percutaneous Approach (ICD-10-PCS; principal; 2024-10-21)
DX: O34.211 Maternal care for low transverse scar from previous cesarean delivery (principal); D62 Acute posthemorrhagic anemia; O13.4 Gestational [pregnancy-induced] hypertension without significant proteinuria, complicating childbirth; O24.429 Gestational diabetes mellitus in childbirth, unspecified control; O99.02 Anemia complicating childbirth; Z3A.37 37 weeks gestation of pregnancy; Z37.0 Single live birth; Z86.16 Personal history of COVID-19; Z90.49 Acquired absence of other specified parts of digestive tract; Z87.891 Personal history of nicotine dependence; Z79.899 Other long term (current) drug therapy
CPT/HCPCS: 36415; 36430; 59025; 80305-QW; 81001; 82570; 82947; 84156; 85025; 85027; 86850; 86900; 86901; 86920; 86922; A9270-GY; J1885; J2405; J2550; J2590; J3490; J7120; P9016